=== PATIENT | male | born 1990 | race Caucasian/White ===

== ENCOUNTER 2016-12-22 16:16 | Emergency (ER) | payer OTHER ==
[~2016-12-22] VITALS: Ht 172.7 cm; Wt 68.0 kg
--- NOTE | 2016-12-22 16:25 | NUR ---
DR PRAKASH AT THE BEDSIDE FOR EVAL AND EXAM.
--- NOTE | 2016-12-22 16:37 | NUR ---
Patient discharged to [facility] rep. in stable conditon. Written and verbal after care instructions given. Patient verbalizes understanding of instructions.
[2016-12-22 16:38] VITALS: BP 144/78
== END 2016-12-22 16:39 | disposition home or self-care (01) ==
LOC: ER 16:20
DX: F11.23 Opioid dependence with withdrawal (principal)
CPT/HCPCS: 99281; A4663